=== PATIENT | male | born 1995 | race Caucasian/White ===

== ENCOUNTER 2024-10-22 01:44 | Emergency (ER) | payer OTHER ==
[~2024-10-22] VITALS: Ht 177.8 cm; Wt 89.0 kg
[2024-10-22 02:11] LABS: HEMATOCRIT 43.2 % (42.0-52.0); HEMOGLOBIN 14.8 g/dl (13.5-17.5); MEAN CORPUSCULAR HEMOGLOBIN 32.9 pg (27.0-33.0); MEAN CORPUSCULAR HGB CONC 34.3 g/dl (32.0-36.5); PLATELET COUNT, AUTOMATED 243 10^3/uL (150-450)
[2024-10-22 02:34] LABS: AMPHETAMINES LEVEL URINE NEGATIVE (NEGATIVE); BARBITURATES URINE NEGATIVE (NEGATIVE); BENZODIAZEPINES URINE NEGATIVE (NEGATIVE); CANNABINOIDS URINE NEGATIVE (NEGATIVE); COCAINE METABOLITE URINE NEGATIVE (NEGATIVE); METHADONE URINE NEGATIVE (NEGATIVE); OPIATES URINE NEGATIVE (NEGATIVE); PHENCYCLIDINE URINE NEGATIVE (NEGATIVE)
[2024-10-22 02:36] LABS: ETHYL ALCOHOL (ETHANOL) 0.194 % (0.000-0.010)
[2024-10-22 02:37] LABS: SALICYLATE LEVEL < 3.0 MG/DL (<30)
[2024-10-22 02:38] LABS: ALBUMIN 4.5 G/DL (3.2-5.2); ALKALINE PHOSPHATASE 68 U/L (40-129); ALT/SGPT 22 U/L (7.0-40); AST/SGOT 17 U/L (<34); BILIRUBIN,DIRECT 0.1 MG/DL (<0.4); BILIRUBIN,TOTAL 0.3 MG/DL (0.3-1.2); BLOOD UREA NITROGEN 13 MG/DL (9-23); CALCIUM LEVEL 9.4 MG/DL (8.5-10.1); CARBON DIOXIDE LEVEL 23 MMOL/L (20-31); CHLORIDE LEVEL 109 MMOL/L (98-107); CREATININE FOR GFR 1.01 MG/DL (0.70-1.30); GLOMERULAR FILTRATION RATE > 90.0 (>60); GLUCOSE, FASTING 119 MG/DL (60-100); POTASSIUM SERUM 3.7 MMOL/L (3.5-5.1); SODIUM LEVEL 144 MMOL/L (136-145); TOTAL PROTEIN 7.5 G/DL (5.7-8.2)
[2024-10-22 02:40] LABS: THYROID STIMULATING HORMONE 1.827 uIU/ML (0.55-4.78)
[2024-10-22] MEDS ORDERED: FAMO20TA PO (09:23)
[2024-10-22] MEDS ORDERED: RIZA10TA2 PO (09:23)
[2024-10-22] MEDS ORDERED: EPIP0.3I2 IM (09:23)
[2024-10-22] MEDS ORDERED: HOME MED LIST COMPLETE! XX SCH (09:25)
[2024-10-22 10:34] VITALS: BP 148/97; TEMP 98.9; O2SAT 100
== END 2024-10-22 10:49 | disposition home or self-care (01) ==
LOC: M ED 01:44
DX: F10.129 Alcohol abuse with intoxication, unspecified (principal); K21.9 Gastro-esophageal reflux disease without esophagitis; F12.10 Cannabis abuse, uncomplicated; F41.9 Anxiety disorder, unspecified; F32.A Depression, unspecified; F43.10 Post-traumatic stress disorder, unspecified; F31.9 Bipolar disorder, unspecified; I10 Essential (primary) hypertension; G43.909 Migraine, unspecified, not intractable, without status migrainosus; Z87.820 Personal history of traumatic brain injury; Z91.012 Allergy to eggs

== ENCOUNTER 2025-05-27 08:24 | Emergency (ER) | payer OTHER ==
[~2025-05-27] VITALS: Ht 177.8 cm; Wt 87.3 kg
[~2025-05-27 08:24] MED LIST: EPIP0.3I2 IM; FAMO20TA PO; RIZA10TA2 PO
[2025-05-27] MEDS: LIDOCAINE 1% MDV 20 ML VIAL IM ONE (09:00)
[2025-05-27 09:28] VITALS: BP 128/64; TEMP 97.6; O2SAT 98
== END 2025-05-27 09:38 | disposition home or self-care (01) ==
LOC: M ED 09:04
DX: S61.432A Puncture wound without foreign body of left hand, initial encounter (principal); W26.0XXA Contact with knife, initial encounter; Y92.009 Unspecified place in unspecified non-institutional (private) residence as the place of occurrence of the external cause; Y93.9 Activity, unspecified; Y99.9 Unspecified external cause status